=== PATIENT | male | born 1975 | race Caucasian/White ===

== ENCOUNTER 2017-07-08 06:06 | Emergency (ER) | payer OTHER ==
[2017-07-08 07:54] VITALS: BP 156/93
== END 2017-07-08 07:54 | disposition home or self-care (01) ==
LOC: ED 06:06
DX: S62.002A Unspecified fracture of navicular [scaphoid] bone of left wrist, initial encounter for closed fracture (principal); W18.30XA Fall on same level, unspecified, initial encounter; Y93.89 Activity, other specified; Y99.8 Other external cause status; Y92.89 Other specified places as the place of occurrence of the external cause